=== PATIENT | male | born 1975 | race Caucasian/White ===

== ENCOUNTER 2024-06-02 17:16 | Inpatient (IN) | payer SELFPAY ==
[2024-06-02] VITALS (8 sets, daily range): BP systolic 158–177; BP diastolic 92–119; PULSE 80–186; RESP 16–28; TEMP 36.2–36.6; O2SAT 94–100; BMI 48.4
--- NOTE | 2024-06-02 17:21 | EKG12_ITS ---
Test Reason : Blood Pressure : */* mmHG Vent. Rate : 176 BPM Atrial Rate : * BPM P-R Int : * ms QRS Dur : 110 ms QT Int : 294 ms P-R-T Axes : * -56 117 degrees QTcB Int : 503 ms Critical Test Result: High HR Supraventricular tachycardia Left axis deviation Nonspecific ST elevation, consider early repolarization, pericarditis, or injury Abnormal ECG Confirmed by Alfred Tran ([id number]), script editor GENARO BENSON ([id number]) on 06/03/2024 10:21:56 AM Referred By: Confirmed By: Alfred Tran
[2024-06-02] MEDS: Adenosine 6 MG/2 ML Syringe IV (17:40)
[2024-06-02 17:45] LABS: Absolute Lymphocyte Count 3.18 X10^3/uL (0.83-4.51); Absolute Neutrophil Count 8.1 X10^3/uL (2.0-7.7); Basophil# 0.03 X10^3/uL; Basophil% 0.2 % (0-1); Eosinophil# 0.06 X10^3/uL; Eosinophils% 0.5 % (0-5); Hematocrit 49.2 % (40-54); Hemoglobin 15.8 g/dL (13.0-16.5); Lymphocyte # 3.18 X10^3/ul (0.83-4.51); Lymphocyte % 25.8 % (19-41); Mean Corp Hgb Conc 32.1 g/dL (32-36); Mean Corpuscular Hgb 27.1 pg (27.0-32.0); Mean Corpuscular Volume 84.5 fL (80-94); Mean Platelet Vol. 10.6 fl (6.2-12.0); Monocyte# 0.89 X10^3/uL; Monocyte% 7.2 % (0-10); NRBC Flagged by Analyzer 0 % (0-5); Neutrophil # 8.12 X10^3/uL (2.7-7.7); Neutrophil % 66.1 % (47-70); Platelet Count 320 K/mm3 (150-450); RBC Distribution Width CV 13.7 % (11.6-14.6); RBC Distribution Width SD 41.4 fl (35.1-43.9); Red Blood Count 5.82 M/mm3 (4.6-6.2); White Blood Count 12.3 K/mm3 (4.4-11.0)
--- NOTE | 2024-06-02 17:46 | ED.RN ---
pt. in SVT rate of 180s. 6 of adenosine pushed and pt. converted to a sinus tachycardia rate of 110 with no complications.
[2024-06-02 17:54] LABS: International Normalized Ratio 0.9; Prothrombin Time (Protime)PT. 12.8 SECONDS (11.7-14.9)
[2024-06-02 17:57] LABS: Anion Gap 6 (5-15); BUN 12 mg/dL (7-18); Calcium,Total 9.7 mg/dL (8.5-10.1); Chloride 106 mmol/L (98-107); Creatinine, Serum 1.09 mg/dL (0.70-1.30); EST Glomerular Filtration Rate 77 mL/min (>60); Est Glom Filt Rate - Afr Amer 93 mL/min (>60); Glucose 147 mg/dL (74-106); Potassium 3.6 mmol/L (3.5-5.1); Sodium Level 136 mmol/L (136-145); Troponin-I HS (w/2H Reflex) 27 pg/mL (3.0-78.0)
--- NOTE | 2024-06-02 17:57 | ED.VIS.CHEST ---
HPI History of Present Illness Chief Complaint: Chest Pain Informant: patient Narrative Narrative: Patient is a 48-year-old male with history of tobacco use presenting with palpitations and feeling of his heart racing. Started around 4:30 PM today. He notes that he is been feeling more congestion, losing his voice and a worsening cough over the past week or so. He notes that he has been having a chronic cough for the past year. He does not see a doctor and try to see a doctor but he had to take too much [id number] to make the appointment. She does not look at his legs based had not noticed any leg swelling. Denies any nausea or vomiting. Does not report any changes bowel movements. Denies any chest pain. No other complaints or concerns reported this time. Denies any known cardiac history. States his mom has a history of thyroid problems. PFSH PFSH Home Medications ?Medication ?Instructions ?Recorded ?Last Taken ?Type NK 06/02/24 Unknown History Allergy/AdvReac Type Severity Reaction Status Date / Time No Known Allergies Allergy Verified 06/02/24 17:17 Social History Smoking Status: Current every day smoker tobacco type: cigarettes ROS ROS ED Constitutional Constitutional ED: Denies chills or fever(s) ENT ENT ED: Reports other Details: Nasal congestion Cardiovascular Cardiovascular: Reports palpitations and racing heartbeat; Denies chest pain Respiratory/Chest Respiratory/Chest: Reports cough, dyspnea and sputum Gastrointestinal Gastrointestinal: Denies abdominal pain, diarrhea, nausea or vomiting Musculoskeletal Musculoskeletal: Denies arthralgias or myalgias Integumentary Denies rash Neurologic Neurologic: Denies weakness Hematologic/Lymphatic Hematologic/Lymphatic: Denies easy bleeding or easy bruising EXAM Physical Exam Const Vital Signs: 06/02/24 17:17 06/02/24 17:40 06/02/24 17:45 Temperature 97.2 F L Temperature Source Temporal Pulse Rate 186 H Respiratory Rate 20 H Respiratory Effort Short of Breath Blood Pressure 165/119 H Blood Pressure Mean 134 Pulse Ox 98 Oxygen Delivery Method Room Air Room Air 06/02/24 18:16 06/02/24 19:00 06/02/24 19:49 Temperature Temperature Source Pulse Rate 100 93 94 Respiratory Rate 20 H 22 H 25 H Respiratory Effort Blood Pressure 161/92 H 159/99 H 167/100 H Blood Pressure Mean 115 119 122 Pulse Ox 100 97 Oxygen Delivery Method Room Air Nasal Cannula 06/02/24 20:00 06/02/24 20:00 06/02/24 21:00 Temperature Temperature Source Pulse Rate 94 105 H 85 Respiratory Rate 28 H 19 H 24 H Respiratory Effort Blood Pressure 166/105 H 166/105 H 168/95 H Blood Pressure Mean 125 124 114 Pulse Ox 97 Oxygen Delivery Method Nasal Cannula Positive well nourished, well developed and obese General Appearance ED: well developed and NAD Nutritional Appearance: obese HEENT Reports moist mucous membranes HEENT Narrative: Mild nasal congestion present Neck supple and no JVD Chest Wall inspection of chest normal and palpation of chest normal Resp normal respiratory effort and clear to auscultation bilaterally Auscultation: Negative for rales, rhonchi or wheezes Cardio regular rhythm and no murmurs Rate: tachycardic Peripheral Pulses: pulses 2+ throughout GI normal to inspection, nondistended, normoactive bowel sounds GI Narrative: Protuberant abdomen, nontender. Normal bowel sounds. Extremity normal to inspection General Extremety ED: Negative for edema General Extremity: Negative for edema Neuro oriented x3 Sensorium / Orientation: awake and alert Motor Exam: Negative for general weakness Psych mental status grossly normal Skin no rashes or lesions noted Skin Narrative: Mild striae noted on the abdominal wall Heart Score History: Slightly/Non-Suspicious ECG: Nonspecific Repolarization Age: >45 - <65 years Risk Factors: >/= 3 Risk Factors or History of CAD Troponin: >/=3 x Normal Limit Score: 6 MDM MDM MDM Narrative Medical decision making narrative: Patient evaluated for acute palpitations and chest discomfort. Is found to be in SVT. Modified Valsalva was attempted with no response of his heart rate. He is given 6 mg of IV adenosine with conversion to sinus tachycardia and then to normal sinus rhythm. On repeat evaluation he is feeling better. Patient has reported some ongoing respiratory symptoms and cough and cardiac workup is initiated. Initial high sensitive troponin is 27. On repeat is 133. His CBC shows a mild leukocytosis of 12.3 with no shift. This is nonspecific and suspect reactive. CMP is largely normal. BNP is elevated at 430.3. On his chest x-ray he does not have any acute process but does have cardiomegaly (this is reviewed by myself as well as radiology). TSH is normal. Low suspicion for thyroid storm as a cause of his symptoms. Patient is given aspirin in the ER. Will be admitted for further cardiac evaluation given his bump in his troponin. While could be from the SVT patient does not have any outpatient follow-up and I am concerned he could have some underlying CHF but has not been diagnosed. In addition he is hypertensive I suspect he has undiagnosed hypertension as well. Lab Data Attestation: I reviewed the patient's lab results. Labs: Laboratory Results - last 24 hr 06/02/24 06/02/24 17:32 19:40 WBC 12.3 H RBC 5.82 Hgb 15.8 Hct 49.2 MCV 84.5 MCH 27.1 MCHC 32.1 RDW Std Deviation 41.4 RDW Coeff of Aleksandar 13.7 Plt Count 320 MPV 10.6 Immature Gran % (Auto) 0.200 Neut % (Auto) 66.1 Lymph % (Auto) 25.8 [place] % (Auto) 7.2 Eos % (Auto) 0.5 Baso % (Auto) 0.2 Absolute Neuts (auto) 8.1 H Absolute Lymphs (auto) 3.18 Nucleated RBC % 0 PT 12.8 INR 0.9 Sodium 136 Potassium 3.6 Chloride 106 Carbon Dioxide 24.0 Anion Gap 6 BUN 12 Creatinine 1.09 Est GFR (MDRD) Af Amer 93 Est GFR (MDRD) Non-Af 77 BUN/Creatinine Ratio 11.0 Glucose 147 H Calcium 9.7 Magnesium 2.0 Troponin I High Sens 27 133 H* B-Natriuretic Peptide 430.3 H TSH 2.030 Radiography Diagnostic Testing: Clinical Impression(s) from Imaging Studies Chest X-Ray 06/02/24 18:05 IMPRESSION: No acute radiographic abnormalities. Electronically Signed: Yunier Mckeon MD at 18:49 EST , Rhythm Strip Rhythm Strip: SVT Rate: 176 Ectopy: None EKG Initial EKG: Attestation: I personally reviewed and interpreted this EKG as follows: Interpretation: SVT Comments: Supraventricular tachycardia rate 136 bpm Left axis deviation Minimal voltage criteria for LVH with ST changes likely repolarization abnormalities Prior EKG tracings: not available for review Prior: No Prior Follow-up EKG: Attestation: I personally reviewed and interpreted this EKG as follows: Interpretation: Sinus Rhythm Comments: Normal sinus rhythm at a rate of 98 bpm Minimal voltage criteria for LVH Borderline leftward axis Nonseptic T wave apneas Slightly prolonged QTc of 490 Prior EKG tracings: available for review Prior: Changed (No longer in SVT) Management Discussion w/another healthcare provider: Hospitalist Discharge Plan Dx/Rx/DC Orders Clinical Impression: Elevated troponin, SVT (supraventricular tachycardia) Disposition Disposition: Acute Care Hospital [facility] Discharge Date/Time: 06/02/24 22:33
--- NOTE | 2024-06-02 18:05 | RAD_ITS ---
INDICATION: cough EXAMINATION/TECHNIQUE: X-RAY - XR Chest 2 Views COMPARISON: None. FINDINGS: The lungs are clear. Tortuous and calcified thoracic aorta. The heart is mildly enlarged. No pleural effusion or pneumothorax. No acute osseous abnormalities. RAD/Chest PA and Lateral IMPRESSION: No acute radiographic abnormalities. Electronically Signed: Yunier Mckeon MD at 18:49 EST ,
[2024-06-02 18:40] LABS: BNP,B-Type NATRIURETIC PEPTIDE 430.3 pg/mL (0-100)
[2024-06-02 19:36] LABS: Reflex Troponin-HS? (from REC) Y
[2024-06-02 20:22] LABS: Troponin-I HS 133 pg/mL (3.0-78.0)
[2024-06-02] MEDS: Aspirin 325 MG Tablet PO (20:48)
--- NOTE | 2024-06-02 21:33 | PCM.HP.STD ---
HPI - General General Date of Admission: 06/02/24 Date of Service: 06/02/24 Chief Complaint: Palpitations and persistent cough HPI Narrative SYDNEY SOLIZ, is a 48 M who presented to [facility] ED on 06/02/2024 with palpitations and persistent cough. Patient notes the palpitations started around 4:30 PM today. He reports a persistent nonproductive cough over the last year or so. Notes he is felt more congested within the last week and has been losing his voice as well. He has not seen a doctor in many years due to cost. He does report some chest pain/discomfort since the palpitations started. On arrival to the ED patient's heart rate was in the 180s and he appeared to be in SVT. Valsalva maneuver was attempted with no improvement. He was then given a dose of 6 mg of IV adenosine with conversion to sinus tachycardia. On repeat evaluation by ED staff he was feeling much improved. After conversion he remained hypertensive to the 150s to 160s systolic. Chest x-ray showed cardiomegaly but no volume overload. CBC and BMP were unremarkable. BNP was 430. Troponin trend 27 > 133 > 335 > 347. EKG showed LV hypertrophy but no ST changes. TSH normal. Given his uptrending troponins with elevated blood pressure and concern for possible heart failure, hospitalist contacted for admission. I saw the patient at bedside in the ED. Patient was sitting up comfortably in bed, breathing comfortably on room air and in no acute distress. He denies any chest pain or shortness of breath at this point. States he has noticed some swelling in his legs over the past few months. Also notes that he has gained 50 to 60 pounds in the last several months. Reports good appetite over that timeframe but does state that this amount of weight gain has been surprising to him. Denies any fevers or chills. No other acute concerns this time. [facility] Home Medications ?Medication ?Instructions ?Recorded ?Last Taken ?Type NK 06/02/24 Unknown History Allergy/AdvReac Type Severity Reaction Status Date / Time No Known Allergies Allergy Verified 06/02/24 17:17 Social History Smoking Status: Current every day smoker tobacco type: cigarettes ROS Constitutional Constitutional: Denies chills, fatigue, fever(s) or weakness Eyes Eyes: Denies change in vision Cardiovascular Cardiovascular: Reports dyspnea on exertion, edema, palpitations and rapid heart rate; Denies chest pain or lightheadedness Respiratory/Chest Respiratory/Chest: Reports cough and shortness of breath with exertion; Denies productive cough, shortness of breath at rest or wheezing Gastrointestinal Gastrointestinal: Denies abdominal pain, constipation, diarrhea, nausea or vomiting Musculoskeletal Musculoskeletal: Denies arthralgias or myalgias Neurologic Neurologic: Denies dizziness, focal weakness or headache(s) Vital Signs Vital Signs Vital Signs: 06/02/24 17:17 06/02/24 17:40 06/02/24 17:45 Temperature 97.2 F L Temperature Source Temporal Pulse Rate 186 H Respiratory Rate 20 H Respiratory Effort Short of Breath Blood Pressure 165/119 H Blood Pressure Mean 134 Pulse Ox 98 Oxygen Delivery Method Room Air Room Air 06/02/24 18:16 06/02/24 19:00 06/02/24 19:49 Temperature Temperature Source Pulse Rate 100 93 94 Respiratory Rate 20 H 22 H 25 H Respiratory Effort Blood Pressure 161/92 H 159/99 H 167/100 H Blood Pressure Mean 115 119 122 Pulse Ox 100 97 Oxygen Delivery Method Room Air Nasal Cannula 06/02/24 20:00 06/02/24 20:00 06/02/24 21:00 Temperature Temperature Source Pulse Rate 94 105 H 85 Respiratory Rate 28 H 19 H 24 H Respiratory Effort Blood Pressure 166/105 H 166/105 H 168/95 H Blood Pressure Mean 125 124 114 Pulse Ox 97 Oxygen Delivery Method Nasal Cannula Physical Exam Const alert, oriented x3 and no apparent distress Constitutional Narrative: Middle-age male, class III obesity, sitting up comfortably in bed, conversing normally, in no acute distress. General Appearance: cooperative and comfortable HEENT normocephalic, head/scalp atraumatic, hearing grossly normal bilaterally, nasal mucous membranes and turbinates normal and moist oral mucous membranes Eyes PERRL, EOMs intact bilaterally and conjunctivae normal Neck full ROM Chest inspection of chest normal Resp normal respiratory effort and no use of accessory muscles Resp Narrative: Breathing comfortably on room air at rest. Mildly decreased breath sounds in bilateral lung bases, otherwise good air movement throughout. No wheezing or crackles noted. Cardio regular rate, regular rhythm, no murmurs and peripheral pulses 2+ throughout GI normal to inspection, nondistended, normoactive bowel sounds, soft to palpation, non-tender and non-distended Back/Spine normal ROM Extremity full ROM Extremity Narrative: +1-2 nonpitting lower extremity edema. Skin no rashes or lesions noted Psych mental status grossly normal Results Lab / Micro Data 06/03/24 03:07 06/03/24 03:07 Labs: Laboratory Results - last 24 hr 06/02/24 17:32: WBC 12.3 H, RBC 5.82, Hgb 15.8, Hct 49.2, MCV 84.5, MCH 27.1, MCHC 32.1, RDW Std Deviation 41.4, RDW Coeff of Aleksandar 13.7, Plt Count 320, MPV 10.6, Immature Gran % (Auto) 0.200, Neut % (Auto) 66.1, Lymph % (Auto) 25.8, [place] % (Auto) 7.2, Eos % (Auto) 0.5, Baso % (Auto) 0.2, Absolute Neuts (auto) 8.1 H, Absolute Lymphs (auto) 3.18, Nucleated RBC % 0, PT 12.8, INR 0.9, Sodium 136, Potassium 3.6, Chloride 106, Carbon Dioxide 24.0, Anion Gap 6, BUN 12, Creatinine 1.09, Est GFR (MDRD) Af Amer 93, Est GFR (MDRD) Non-Af 77, BUN/Creatinine Ratio 11.0, Glucose 147 H, Calcium 9.7, Magnesium 2.0, Troponin I High Sens 27, B-Natriuretic Peptide 430.3 H, TSH 2.030 06/02/24 19:40: Troponin I High Sens 133 H* Micro: Microbiology 06/02/24 18:07 Mucosa - Nose SARS-CoV-2, Influenza & RSV (PCR) - Final Imaging Radiology Impression Chest X-Ray 06/02/24 18:05 IMPRESSION: No acute radiographic abnormalities. Electronically Signed: Yunier Mckeon MD at 18:49 EST , Assessment & Plan Assessment/Plan (1) SVT (supraventricular tachycardia): (2) Elevated troponin: PLAN: Plan Patient is a 48-year-old male who presented [facility] ED on 06/02/2024 with palpitations and persistent cough. 1. Episode of SVT with uptrending troponins and concern for heart failure ? Admit under inpatient status to PCU. Highest concern is for diastolic heart failure secondary to untreated hypertension given cardiomegaly on chest x-ray and LV hypertrophy on EKG. However cannot rule out underlying coronary disease. Nuclear stress test ordered. Echo ordered. Continue cardiac monitoring. Will hold on starting any blood pressure medications until cardiac testing has resulted. 2. Elevated blood pressure readings ? Blood pressure consistently in the 150s to 160s in the ED. Suspect patient has underlying essential hypertension. Has never been on medication for this. Further management as above. 3. Class III obesity ? BMI 48 on admit. Encouraged lifestyle modifications. Complicates hospital course, care and prognosis. 4. Tobacco use disorder ? Smokes 0.5 to 1 packs of cigarettes per day. Discussed cessation. Denies need for nicotine replacement therapy while inpatient. DVT prophylaxis: Lovenox CODE STATUS: Full code, verified Expected disposition: Home, 2 to 3 days Total clinical time spent by myself addressing the patient's medical issues, reviewing all the data, and collaborating with patient's care team: 55 minutes. Charges/Coding Visit Charges Inpatient E&M: 07681 Init Hosp L2
[2024-06-02] MEDS: Furosemide 20 MG/2 ML VIAL IV (22:11)
--- NOTE | 2024-06-02 22:53 | ECHOCS_ITS ---
Reason For Study: CHEST PAIN Procedure This was a 2D Doppler, Color Flow transthoracic echocardiogram. The study was technically difficult. Contrast injection was performed. Exam performed in department. Left Ventricle Normal LV size. The estimated ejection fraction is 45 %. There is evidence of diastolic dysfunction. There is mild to moderate global hypokinesis of the left ventricle. Right Ventricle Normal RV size. Normal systolic function. Atria The left and right atria are normal. No doppler evidence for ASD. Mitral Valve There is no mitral valve stenosis. No mitral valve insufficiency. Tricuspid Valve There is no tricuspid stenosis. Unable to estimate RV systolic pressure due to inadequate jet, pulmonary artery pressure probably normal. Aortic Valve Trisinus/trileaflet aortic valve. Aortic sclerosis, no stenosis. There is no aortic stenosis. Mild (1+) aortic valve insufficiency. Pulmonic Valve There is no pulmonic valvular stenosis. No pulmonic valve insufficiency. Great Vessels Normal aortic root. Pericardium/Pleural No pericardial effusion. Medication Diluted definity 3ml given slow IV push to enhance endocardial definition. MMode/2D Measurements & Calculations LVIDd: 6.1 cm IVSd: 1.7 cm LAV(MOD-bp): 55.6 ml LVIDs: 5.2 cm LVPWd: 1.6 cm FS: 15.4 % LAV(MOD-bp) Indexed: 22.3 ml/m2 LAV(MOD-sp2): 50.2 ml LAV(MOD-sp4): 64.1 ml LA dimension(2D): 4.4 cm LA A4 area: 20.5 cm2 RA A4 area: 16.9 cm2 Time Measurements MV dec time: 0.09 sec Doppler Measurements & Calculations MV E max david: 98.7 cm/sec Lat Peak E' David: 4.7 cm/sec Med Peak E' David: 5.7 cm/sec MV A max david: 94.9 cm/sec E/E' lat: 20.8 E/E' med: 17.2 MV E/A: 1.0 Ao V2 max: 173.1 cm/sec AI max david: 496.4 cm/sec MV dec slope: 1106 cm/sec2 Ao max P.0 mmHg AI max P.6 mmHg Ao V2 mean: 127.2 cm/sec Ao mean P.2 mmHg AI dec slope: 445.5 cm/sec2 Ao V2 VTI: 37.9 cm AI P1/2t: 326.4 msec AV (velocity ratio): 0.81 LV V1 max: 124.6 cm/sec PA V2 max: 87.7 cm/sec LV V1 max P.2 mmHg PA V2 mean: 56.9 cm/sec LV V1 mean P.4 mmHg LV V1 mean: 82.9 cm/sec LV V1 VTI: 30.6 cm ECHO/Echo Complete W/ Contrast Interpretation Summary The estimated ejection fraction is 45 %. There is mild to moderate global hypokinesis of the left ventricle. Mild (1+) aortic valve insufficiency. Ordering Physician: Waqas Ott Referring Physician: RONNIE PCP Performed By: Laura Gibbs RCS
--- NOTE | 2024-06-02 23:10 | EKG12_ITS ---
Test Reason : Blood Pressure : */* mmHG Vent. Rate : 98 BPM Atrial Rate : 98 BPM P-R Int : 146 ms QRS Dur : 106 ms QT Int : 384 ms P-R-T Axes : 45 -22 97 degrees QTcB Int : 490 ms Normal sinus rhythm Minimal voltage criteria for LVH, may be normal variant ( Ashok product ) Nonspecific T wave abnormality Prolonged QT Abnormal ECG Confirmed by Alfred Tran ([id number]), staff editor GENARO BENSON ([id number]) on 06/03/2024 10:22:08 AM Referred By: AMELIA Confirmed By: Alfred Tran
--- NOTE | 2024-06-02 23:15 | EKG12_ITS ---
Test Reason : CP ADMIT Blood Pressure : */* mmHG Vent. Rate : 78 BPM Atrial Rate : 78 BPM P-R Int : 170 ms QRS Dur : 106 ms QT Int : 408 ms P-R-T Axes : 37 -15 246 degrees QTcB Int : 465 ms Normal sinus rhythm Voltage criteria for left ventricular hypertrophy ( R in aVL , Sokolow-Nuno , Ashok product ) T wave abnormality, consider lateral ischemia Prolonged QT Abnormal ECG When compared with ECG of 02-Jun-2024 17:51, MANUAL COMPARISON REQUIRED DATA IS UNCONFIRMED Confirmed by Alfred Tran ([id number]), editor city GENARO BENSON ([id number]) on 06/03/2024 1:18:33 PM Referred By: DR LARIOS Confirmed By: Alfred Tran
[2024-06-03 00:05] LABS: Troponin-I HS 335 pg/mL (3.0-78.0)
[2024-06-03 03:33] LABS: Hematocrit 44.5 % (40-54); Hemoglobin 14.4 g/dL (13.0-16.5); Mean Corp Hgb Conc 32.4 g/dL (32-36); Mean Corpuscular Hgb 27.6 pg (27.0-32.0); Mean Corpuscular Volume 85.2 fL (80-94); Mean Platelet Vol. 10.4 fl (6.2-12.0); Platelet Count 277 K/mm3 (150-450); RBC Distribution Width CV 13.7 % (11.6-14.6); RBC Distribution Width SD 42.2 fl (35.1-43.9); Red Blood Count 5.22 M/mm3 (4.6-6.2)
[2024-06-03 03:57] LABS: Troponin-I HS 347 pg/mL (3.0-78.0)
[2024-06-03 04:01] LABS: Anion Gap 3 (5-15); BUN 12 mg/dL (7-18); BUN/Creat Ratio 12.6 RATIO (10-20); Calcium,Total 9.1 mg/dL (8.5-10.1); Chloride 107 mmol/L (98-107); Cholesterol 193 mg/dL (200); Creatinine, Serum 0.95 mg/dL (0.70-1.30); EST Glomerular Filtration Rate 90 mL/min (>60); Est Glom Filt Rate - Afr Amer 108 mL/min (>60); Estimated Creatinine Clearance 133.05 ml/min; Glucose 137 mg/dL (74-106); High Density Lipoprotein 30 mg/dL; Potassium 3.4 mmol/L (3.5-5.1); Sodium Level 139 mmol/L (136-145); Triglycerides 316 mg/dL; Very Low Density Lipoprotein 63 mg/dL (5-40)
[2024-06-03] MEDS: Potassium Chloride Oral Tablet 20 MEQ 40 MEQ PO (05:14)
[2024-06-03 05:15] VITALS: BP 150/80; PULSE 73; RESP 18; TEMP 36.6; O2SAT 95
--- NOTE | 2024-06-03 05:55 | EKG12_ITS ---
Test Reason : AM EKG Blood Pressure : */* mmHG Vent. Rate : 74 BPM Atrial Rate : 74 BPM P-R Int : 164 ms QRS Dur : 112 ms QT Int : 430 ms P-R-T Axes : 41 -12 238 degrees QTcB Int : 477 ms Normal sinus rhythm Voltage criteria for left ventricular hypertrophy ( R in aVL , Sokolow-Nuno , [place] product ) T wave abnormality, consider inferolateral ischemia Prolonged QT Abnormal ECG When compared with ECG of 02-Jun-2024 23:15, MANUAL COMPARISON REQUIRED DATA IS UNCONFIRMED Confirmed by Alfred Tran ([id number]), slot editor GENARO BENSON ([id number]) on 06/03/2024 1:14:01 PM Referred By: Confirmed By: Alfred Tran
[2024-06-03 10:15] VITALS: BP 165/92; PULSE 75; RESP 18; TEMP 36.3; O2SAT 95
--- NOTE | 2024-06-03 10:55 | CASEMGMT ---
RN FAIZA Face to Face with patient for initial transition planning/care coordination assessment. RN CM introduced self and role at [facility]. Patient lying in bed, alert and oriented. Patient willing to participate in assessment and is able to answer all questions appropriately. Care providers, pharmacy, and demographics verified. Strata: 1 PCP: None, CM to provide PCP list Specialists: none Preferred Pharmacy: [facility] Insurance: none Prescription Benefit: none Living Will/HPOA: none LNOK: significant other Living Arrangements: Patient lives with significant other in a first floor apartment with 2 steps to enter. Patient states he is independent at home. Transportation: self, significant other DME/HHC: Denies DME in the home. No previous HHC or SNF Patient wishes to discharge home, denies need for home health at this time. Patient states he has no further needs or concerns at this time. CM to follow for discharge planning needs that may arise. Disposition Plan: Patient to discharge home with family support and follow-up plans in place. Elida TORREZ, RN, CM
--- NOTE | 2024-06-03 11:52 | CASEMGMT ---
Social Work SW met with pt and introduced self and role of SW. Pt presenting with no health insurance. Written information provided to pt on Prescription Assistance programs, [facility] and [facility]. Pt will be seen by Marta and assessed for Medicaid eligibility. HARRY Pascal
--- NOTE | 2024-06-03 12:18 | STRESSREP ---
Stress Test Report Date: 06/03/2024 Procedure: Pharmacologic stress nuclear imaging study Indications: Chest pain Consent: Per the patient Procedure: The patient underwent pharmacologic (Regadenoson) evaluation with a peak heart rate of 100 beats per minute (58%predicted maximal heart rate) and a peak blood pressure of 152/92 mmHg. The baseline ECG demonstrated normal sinus rhythm, poor R wave progression in the anterior leads. EKG during lexiscan infusion revealed no significant ischemic changes. EKG post infusion revealed no significant ischemic changes [There were no cardiac dysrhythmias pretest, during pharmacologic infusion, or recovery]. [There was no complaint of chest discomfort during pharmacologic infusion or recovery]. The examination was discontinued secondary to completion of protocol. Impression: 1. Lexiscan stress test test is negative for Lexiscan infusion induced EKG changes of ischemia. 2. Lexiscan stress test test is negative for Lexiscan infusion induced chest pain. 3. Results of the nuclear portion of the test is as below Myocardial perfusion imaging study: Technique: The patient was injected with 15 millicuries of technetium 99m Cardiolite and subsequently rest SPECT Cardiolite nuclear imaging was obtained in the horizontal long, vertical long, and short axis views. The patient underwent pharmacologic [Regadenoson 0.4mg] evaluation. Please see above for details. The patient was injected with 45.6 millicuries of technetium 99m Cardiolite and subsequently stress SPECT Cardiolite nuclear imaging was obtained in the horizontal long, vertical long, and short axis views. A gated Cardiolite study at peak stress was obtained. Interpretation: Rest and stress SPECT Cardiolite nuclear imaging status post realignment, normalization, and attenuation correction demonstrate mild decrease in the radioisotope uptake in the inferior wall on the rest images that is minimally worse on the stress images suggestive of mild inferior ischemia. Gated images reveal global hypokinesis. The reported LVEF is 37%. Impression: 1. There is evidence of mild inferior ischemia. 2. Estimated ejection fraction is 37%. This note was generated with [employer] software. It may contain incorrect words, spelling, and punctuation that were not noted in checking the note before signing.
--- NOTE | 2024-06-03 14:50 | CHAPLAIN ---
Type of Pastoral Visit _x__ Initial Visit ___ Follow-up Visit ___ On-call Visit ___ General Patient Visit ___ Spiritual Assessment ___ Family Conference ___ Bereavement ___ Rapid Response ___ Code Blue ___ Other (describe below) Pastoral Care Referral From _x__ Patient ___ Family ___ Nurse ___ Physician ___ Manufacturing Specialist ___ Abattoir Manager ___ Other (describe below) Sacrament/Intervention _x__ Active listening ___ Anointing ___ Restoration ___ Bereavement ___ Communion ___ Yaneth exploration ___ ___ Life review ___ Prayer ___ Reconciliation ___ Sacrament of Sick _x__ Supportive presence ___ Wedding ___ Other (describe below) Pastoral Comments patient is waiting on test results and is resting in bed; pt and spouse are in the room; pt describes what happened yesterday that brought him to the hospital, that he is feeling much better now, and has hopes that he will be able to go home yet today; pt states that he has no other needs
[2024-06-03 15:29] VITALS: BP 171/84; PULSE 78; RESP 18; TEMP 36.6; O2SAT 95
[2024-06-03] MEDS: Enoxaparin 40 MG/0.4 ML Syringe SC ×2 (15:32→22:56)
[2024-06-03] MEDS: Aspirin E.C. 81 MG Tablet PO (15:36)
--- NOTE | 2024-06-03 16:15 | PCM.PN.HOSP ---
Reason for Visit Reason for Visit: Diagnoses Supraventricular tachycardia, unspecified (06/02/24) Other specified abnormal findings of blood chemistry (06/02/24) Subjective Subjective Patient did have a little bit of chest pain during his stress test but not presently having any, mostly just feeling tired Objective Data Objective Data Vital Signs: Vital Signs Temp Pulse Resp BP Pulse Ox O2 Del Method 97.8 F 78 18 171/84 H 95 Room Air 06/03/24 15:29 06/03/24 15:29 06/03/24 15:29 06/03/24 15:29 06/03/24 15:29 06/03/24 15:29 Oxygen Delivery Method Room Air Weight: 144.7 kg Body Mass Index (BMI) 48.4 Lab / Micro Data 06/03/24 03:07 06/03/24 03:07 Labs: Laboratory Results - last 24 hr 06/02/24 17:32: WBC 12.3 H, RBC 5.82, Hgb 15.8, Hct 49.2, MCV 84.5, MCH 27.1, MCHC 32.1, RDW Std Deviation 41.4, RDW Coeff of Aleksandar 13.7, Plt Count 320, MPV 10.6, Immature Gran % (Auto) 0.200, Neut % (Auto) 66.1, Lymph % (Auto) 25.8, [place] % (Auto) 7.2, Eos % (Auto) 0.5, Baso % (Auto) 0.2, Absolute Neuts (auto) 8.1 H, Absolute Lymphs (auto) 3.18, Nucleated RBC % 0, PT 12.8, INR 0.9, Sodium 136, Potassium 3.6, Chloride 106, Carbon Dioxide 24.0, Anion Gap 6, BUN 12, Creatinine 1.09, Est GFR (MDRD) Af Amer 93, Est GFR (MDRD) Non-Af 77, BUN/Creatinine Ratio 11.0, Glucose 147 H, Calcium 9.7, Magnesium 2.0, Troponin I High Sens 27, B-Natriuretic Peptide 430.3 H, TSH 2.030 06/02/24 19:40: Troponin I High Sens 133 H* 06/02/24 23:32: Troponin I High Sens 335 H* 06/03/24 03:07: WBC 10.0, RBC 5.22, Hgb 14.4, Hct 44.5, MCV 85.2, MCH 27.6, MCHC 32.4, RDW Std Deviation 42.2, RDW Coeff of Aleksandar 13.7, Plt Count 277, MPV 10.4, Sodium 139, Potassium 3.4 L, Chloride 107, Carbon Dioxide 29.0, Anion Gap 3 L, BUN 12, Creatinine 0.95, Estim Creat Clear Calc 133.05, Est GFR (MDRD) Af Amer 108, Est GFR (MDRD) Non-Af 90, BUN/Creatinine Ratio 12.6, Glucose 137 H, Calcium 9.1, Troponin I High Sens 347 H*, Triglycerides 316 H, Cholesterol 193, LDL Cholesterol 100, VLDL Cholesterol 63 H, HDL Cholesterol 30 L Micro: Microbiology 06/02/24 18:07 Mucosa - Nose SARS-CoV-2, Influenza & RSV (PCR) - Final Radiography Diagnostic Testing: Radiology Impression Chest X-Ray 06/02/24 18:05 IMPRESSION: No acute radiographic abnormalities. Electronically Signed: Yunier Mckeon MD at 18:49 EST , Echocardiogram 06/02/24 22:53 Interpretation Summary The estimated ejection fraction is 45 %. There is mild to moderate global hypokinesis of the left ventricle. Mild (1+) aortic valve insufficiency. Ordering Physician: Waqas Ott Referring Physician: NO PCP Performed By: Laura Gibbs RCS Rhythm Strip Rhythm Strip: SVT Rate: 176 Ectopy: None Physical Exam Narrative General: Tired but wakes up and answers questions appropriately HEENT: Atraumatic, normocephalic Eyes: Anicteric, normal conjunctiva, extraocular movements grossly intact Neck: Supple Respiratory: Somewhat diminished bilaterally possibly secondary to body habitus, normal respiratory effort Cardiovascular: Regular rate and rhythm GI: Abdomen protuberant Extremities: No edema Musculoskeletal: Moving all extremities Neuro: No overt focal neurological deficits Skin: No rashes appreciated Psych: Cooperative Assessment & Plan Assessment/Plan (1) Elevated troponin: PLAN: Plan #Elevated troponin and abnormal stress test -Troponins up trended to 347 and stress test with evidence of mild inferior ischemia -Patient started on aspirin, statin, beta-renny -Not presently having chest pain so heparin drip not started the cardiology consulted and the patient may need cardiac cath -Cardiac diet, n.p.o. at midnight in the event he needs intervention # New onset heart failure with preserved ejection fraction -Patient with EF 45% with mild to moderate global hypokinesis of left ventricle and echocardiogram reported evidence of diastolic dysfunction -BNP 430 on presentation -Cardiac diet -At this time does not appear to be significantly fluid overloaded, did get a dose of Lasix overnight, will monitor volume status. May ultimately need further Lasix -Daily weights, I's and O's # Hypertension -Metoprolol started, will likely also need MARY ELLEN inhibitor # SVT-resolved -Noted in the ED and patient was given adenosine with resolution -Admitted on telemetry -Continue to monitor -TSH within normal limits #Hypokalemia -Replace -Repeat in the AM #Morbid obesity -BMI documented as 48.5 kg/m? at time of admission -Complicates treatment, prognosis, outcomes -Recommend weight loss and lifestyle changes #Tobacco use -Advise cessation -Nicotine replacement available if desired #DVT ppx: Lovenox subcu Lupe Menendez MD Charges/Coding Visit Charges Inpatient E&M: 31151 Subs Hosp L2
--- NOTE | 2024-06-03 16:48 | PCM.CONS.C ---
Assessment & Plan Assessment/Plan (1) Abnormal stress test: PLAN: Patient's symptoms were consistent with an anginal equivalent. His troponin was 347. Stress test suggested inferior ischemia. The echocardiogram suggested global LV dysfunction EF of 45% consistent with possible hypertensive heart disease. Given the patient's presentation and the subtle T wave changes on his EKG with the positive enzymes and abnormal stress test I would recommend the patient undergo a left heart catheterization. The procedure risk/benefit and alternatives were explained to the patient in detail he voiced understanding and agrees to proceed. (2) SVT (supraventricular tachycardia): PLAN: Patient has not had a recurrence of his SVT which was converted with Identicard in the emergency department. (3) Hypertension: QUALIFIERS: Hypertension type: primary hypertension Qualified Code(s): I10 - Essential (primary) hypertension PLAN: Patient's blood pressure remains elevated on metoprolol 25 mg twice daily. I would recommend that we continue the metoprolol and add losartan 50 mg every afternoon to his medical regiment. PLAN: Plan 1. Will plan left heart catheterization tomorrow morning. 2. Add losartan to his medical regimen. 3. Further recommendations pending the outcome of the catheterization. HPI Consult Data Date of Consult: 06/03/24 HPI Narrative HPI Narrative: SYDNEY SOLIZ, is a 48 M who presents with chest pain and an abnormal stress test was done today in the hospital. Patient presented June 02, 2024 after he developed chest discomfort palpitations diffuse sweating and left arm discomfort while working at [employer]. 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 The patient came to the emergency room room he was in supraventricular tachycardia at around 180 bpm and this was treated with adenosine with conversion to sinus tach. The patient was hospitalized due to troponin elevation of 300. He has had no recurrence of his SVT or his chest symptoms. His EKG initially showed LVH and sinus rhythm. Subsequent EKG 24 hours later showed the same LVH but more prominent T wave inversions in the limb leads as well as V3 4 through V6. The patient underwent pharmacologic stress testing today which showed inferior ischemia. The patient is echocardiogram done today showed an global LV dysfunction EF of 45%. The patient apparently has untreated hypertension he has not been to the doctor in several years due to financial constraints. He continues to smoke he does have a 5-year-old daughter that I discussed with him the importance of him stopping smoking. The patient is not allergic to contrast to his knowledge. [facility] Home Medications ?Medication ?Instructions ?Recorded ?Last Taken ?Type NK 06/02/24 Unknown History Allergy/AdvReac Type Severity Reaction Status Date / Time No Known Allergies Allergy Verified 06/02/24 17:17 Social History Smoking Status: Current every day smoker tobacco type: cigarettes ROS Constitutional Constitutional: Reports as per HPI Eyes Eyes: Reports systems reviewed and no addt'l complaints, except as documented ENT HEENT: Reports systems reviewed and no addt'l complaints, except as documented Cardiovascular Cardiovascular: Reports as per HPI Respiratory/Chest Respiratory/Chest: Reports as per HPI Gastrointestinal Gastrointestinal: Reports systems reviewed and no addt'l complaints, except as documented Genitourinary Genitourinary: Reports systems reviewed and no addt'l complaints, except as documented Musculoskeletal Musculoskeletal: Reports systems reviewed and no addt'l complaints, except as documented Integumentary Integumentary: Reports systems reviewed and no addt'l complaints, except as documented Neurologic Neurologic: Reports systems reviewed and no addt'l complaints, except as documented Psychiatric Psychiatric: Reports systems reviewed and no addt'l complaints, except as documented Endocrine Endocrinology: Reports systems reviewed and no addt'l complaints, except as documented Hematologic/Lymphatic Hematologic/Lymphatic: Reports systems reviewed and no addt'l complaints, except as documented Allergic/Immunologic Allergic/Immunologic: Reports systems reviewed and no addt'l complaints, except as documented Physical Exam Const alert and oriented x3 HEENT normocephalic Eyes EOMs intact bilaterally Neck no JVD Carotids: Negative for bruit Chest inspection of chest normal Resp normal respiratory effort and clear to auscultation bilaterally Cardio regular rate, regular rhythm, S1 normal heart sound, S2 normal heart sound, no murmurs, no rub and no gallops Peripheral Pulses: radial pulses present bilateral 2+ GI normal to inspection, nondistended, normoactive bowel sounds, soft to palpation and no bruits Extremity no pedal edema Skin no rashes or lesions noted Neuro Neuro Narrative: Alert and oriented x 3 Psych mental status grossly normal Risk Stratification Risk Stratification Applicable: Yes Age >/= 65: No >/= 3 CAD Risk Factors (HTN, HLD, DM, family hx of CAD, or current smoker): No Aspirin Use in the Past 7 Days: No Severe Angina (>/= episodes in 24 hours): Yes EKG ST Changes >/= 0.5mm: No Positive Cardiac Marker: Yes FANNY Risk Stratification Score: 2 FANNY % Risk: 8% Risk Charges/Coding Visit Charges Inpatient E&M: 76967 Init Hosp L3 Objective Data Vital Signs: Vital Signs Temp Pulse Resp BP Pulse Ox O2 Del Method 97.8 F 78 18 171/84 H 95 Room Air 06/03/24 15:29 06/03/24 15:29 06/03/24 15:29 06/03/24 15:29 06/03/24 15:29 06/03/24 15:29 Oxygen Delivery Method Room Air Weight: 319 lb 0.142 oz Body Mass Index (BMI) 48.4 Lab / Micro Data Attestation: I reviewed the patient's lab results. 06/03/24 03:07 06/03/24 03:07 Labs: Laboratory Results - last 24 hr 06/02/24 17:32: WBC 12.3 H, RBC 5.82, Hgb 15.8, Hct 49.2, MCV 84.5, MCH 27.1, MCHC 32.1, RDW Std Deviation 41.4, RDW Coeff of Aleksandar 13.7, Plt Count 320, MPV 10.6, Immature Gran % (Auto) 0.200, Neut % (Auto) 66.1, Lymph % (Auto) 25.8, [place] % (Auto) 7.2, Eos % (Auto) 0.5, Baso % (Auto) 0.2, Absolute Neuts (auto) 8.1 H, Absolute Lymphs (auto) 3.18, Nucleated RBC % 0, PT 12.8, INR 0.9, Sodium 136, Potassium 3.6, Chloride 106, Carbon Dioxide 24.0, Anion Gap 6, BUN 12, Creatinine 1.09, Est GFR (MDRD) Af Amer 93, Est GFR (MDRD) Non-Af 77, BUN/Creatinine Ratio 11.0, Glucose 147 H, Calcium 9.7, Magnesium 2.0, Troponin I High Sens 27, B-Natriuretic Peptide 430.3 H, TSH 2.030 06/02/24 19:40: Troponin I High Sens 133 H* 06/02/24 23:32: Troponin I High Sens 335 H* 06/03/24 03:07: WBC 10.0, RBC 5.22, Hgb 14.4, Hct 44.5, MCV 85.2, MCH 27.6, MCHC 32.4, RDW Std Deviation 42.2, RDW Coeff of Aleksandar 13.7, Plt Count 277, MPV 10.4, Sodium 139, Potassium 3.4 L, Chloride 107, Carbon Dioxide 29.0, Anion Gap 3 L, BUN 12, Creatinine 0.95, Estim Creat Clear Calc 133.05, Est GFR (MDRD) Af Amer 108, Est GFR (MDRD) Non-Af 90, BUN/Creatinine Ratio 12.6, Glucose 137 H, Calcium 9.1, Troponin I High Sens 347 H*, Triglycerides 316 H, Cholesterol 193, LDL Cholesterol 100, VLDL Cholesterol 63 H, HDL Cholesterol 30 L Micro: Microbiology 06/02/24 18:07 Mucosa - Nose SARS-CoV-2, Influenza & RSV (PCR) - Final Rhythm Strip Rhythm Strip: Sinus Rhythm Rate: 75 Ectopy: None Cardiology Labs/Tests 06/02/24 17:32: WBC 12.3 H, RBC 5.82, Hgb 15.8, Hct 49.2, MCV 84.5, MCH 27.1, MCHC 32.1, Plt Count 320, MPV 10.6, Immature Gran % (Auto) 0.200, Neut % (Auto) 66.1, Lymph % (Auto) 25.8, [place] % (Auto) 7.2, Eos % (Auto) 0.5, Baso % (Auto) 0.2, Absolute Neuts (auto) 8.1 H, Nucleated RBC % 0, PT 12.8, INR 0.9, Sodium 136, Potassium 3.6, Chloride 106, Carbon Dioxide 24.0, Anion Gap 6, BUN 12, Creatinine 1.09, Est GFR (MDRD) Af Amer 93, Est GFR (MDRD) Non-Af 77, BUN/Creatinine Ratio 11.0, Glucose 147 H, Calcium 9.7, Magnesium 2.0, B-Natriuretic Peptide 430.3 H 06/03/24 03:07: WBC 10.0, RBC 5.22, Hgb 14.4, Hct 44.5, MCV 85.2, MCH 27.6, MCHC 32.4, Plt Count 277, MPV 10.4, Sodium 139, Potassium 3.4 L, Chloride 107, Carbon Dioxide 29.0, Anion Gap 3 L, BUN 12, Creatinine 0.95, Est GFR (MDRD) Af Amer 108, Est GFR (MDRD) Non-Af 90, BUN/Creatinine Ratio 12.6, Glucose 137 H, Calcium 9.1, Triglycerides 316 H, Cholesterol 193, LDL Cholesterol 100, VLDL Cholesterol 63 H, HDL Cholesterol 30 L Rhythm: EKG: ECHO: Stress Test: Cardiac Cath: PCI: CT Surgery: Holter monitor: EPS: PPM: CXR: Chest CT Scan: Radiography Diagnostic Testing: Radiology Impression Chest X-Ray 06/02/24 18:05 IMPRESSION: No acute radiographic abnormalities. Electronically Signed: Yunier Mckeon MD at 18:49 EST , Echocardiogram 06/02/24 22:53 Interpretation Summary The estimated ejection fraction is 45 %. There is mild to moderate global hypokinesis of the left ventricle. Mild (1+) aortic valve insufficiency. Ordering Physician: Waqas Ott Referring Physician: NO PCP Performed By: Laura Gibbs RCS
[2024-06-03 17:25] LABS: Hemoglobin A1c 6.1 % (3.8-5.6)
[2024-06-03 17:34] VITALS: PULSE 78
[2024-06-03] MEDS: Metoprolol Tartrate 25 MG Tablet PO (17:34)
[2024-06-03 18:21] VITALS: BP 171/92
[2024-06-03 21:30] VITALS: BP 169/86; PULSE 76; RESP 18; TEMP 36.4; O2SAT 97
[2024-06-03] MEDS: 0.9% Saline Lock 10 ML Syringe IV (22:55)
[2024-06-03] MEDS: Atorvastatin Calcium 80 MG Tablet PO (22:56)
[2024-06-04] VITALS (9 sets, daily range): BP systolic 153–173; BP diastolic 88–95; PULSE 70–93; RESP 17–18; TEMP 36.5–37; O2SAT 94–98; BMI 48.7
--- NOTE | 2024-06-04 05:55 | EKG12_ITS ---
Test Reason : AM EKG Blood Pressure : */* mmHG Vent. Rate : 77 BPM Atrial Rate : 77 BPM P-R Int : 160 ms QRS Dur : 94 ms QT Int : 410 ms P-R-T Axes : 48 -14 12 degrees QTcB Int : 463 ms Normal sinus rhythm Moderate voltage criteria for LVH, may be normal variant ( R in aVL , [place] product ) Cannot rule out Anterior infarct , age undetermined T wave abnormality, consider lateral ischemia Abnormal ECG Confirmed by Alfred Tran ([id number]), associate editor GENARO BENSON ([id number]) on 06/04/2024 9:39:35 AM Referred By: Confirmed By: Alfred Tran
[2024-06-04] MEDS: Metoprolol Tartrate 25 MG Tablet PO (06:14)
[2024-06-04] MEDS: Aspirin E.C. 81 MG Tablet PO (06:18)
[2024-06-04 07:24] LABS: Hematocrit 46.3 % (40-54); Hemoglobin 14.7 g/dL (13.0-16.5); Mean Corp Hgb Conc 31.7 g/dL (32-36); Mean Corpuscular Hgb 27.4 pg (27.0-32.0); Mean Corpuscular Volume 86.2 fL (80-94); Platelet Count 270 K/mm3 (150-450); RBC Distribution Width SD 43.9 fl (35.1-43.9); Red Blood Count 5.37 M/mm3 (4.6-6.2); White Blood Count 9.6 K/mm3 (4.4-11.0)
[2024-06-04 07:43] LABS: Anion Gap 4 (5-15); BUN 12 mg/dL (7-18); BUN/Creat Ratio 14.2 RATIO (10-20); Calcium,Total 9.1 mg/dL (8.5-10.1); Chloride 107 mmol/L (98-107); Creatinine, Serum 0.85 mg/dL (0.70-1.30); EST Glomerular Filtration Rate 102 mL/min (>60); Est Glom Filt Rate - Afr Amer 124 mL/min (>60); Estimated Creatinine Clearance 149.12 ml/min; Glucose 104 mg/dL (74-106); Magnesium 2.4 mg/dL (1.6-2.6); Potassium 3.7 mmol/L (3.5-5.1); Sodium Level 136 mmol/L (136-145)
--- NOTE | 2024-06-04 08:06 | PN.CARD_ITS ---
Subjective Subjective Patient resting comfortably in the bed. He denies any recurrence of any anginal type symptoms. His blood pressure has remained elevated. The patient is scheduled for left heart catheterization this morning. Objective Data Vital Signs: Vital Signs Temp Pulse Resp BP Pulse Ox O2 Del Method 98.1 F 76 17 163/93 H 96 Room Air 06/04/24 03:00 06/04/24 06:14 06/04/24 03:00 06/04/24 06:14 06/04/24 03:00 06/04/24 03:05 Oxygen Delivery Method Room Air Weight: 320 lb 8.834 oz Body Mass Index (BMI) 48.7 Lab / Micro Data Attestation: I reviewed the patient's lab results. 06/04/24 06:09 06/04/24 06:09 Labs: Laboratory Results - last 24 hr 06/03/24 03:07: Hemoglobin A1c 6.1 H 06/04/24 06:09: WBC 9.6, RBC 5.37, Hgb 14.7, Hct 46.3, MCV 86.2, MCH 27.4, MCHC 31.7 L, RDW Std Deviation 43.9, RDW Coeff of Aleksandar 14.0, Plt Count 270, MPV 11.0, Sodium 136, Potassium 3.7, Chloride 107, Carbon Dioxide 25.0, Anion Gap 4 L, BUN 12, Creatinine 0.85, Estim Creat Clear Calc 149.12, Est GFR (MDRD) Af Amer 124, Est GFR (MDRD) Non-Af 102, BUN/Creatinine Ratio 14.2, Glucose 104, Calcium 9.1, Magnesium 2.4 Rhythm Strip Rhythm Strip: Sinus Rhythm Rate: 70 Ectopy: None Cardiology Labs/Tests 06/03/24 03:07: Hemoglobin A1c 6.1 H 06/04/24 06:09: WBC 9.6, RBC 5.37, Hgb 14.7, Hct 46.3, MCV 86.2, MCH 27.4, MCHC 31.7 L, Plt Count 270, MPV 11.0, Sodium 136, Potassium 3.7, Chloride 107, Carbon Dioxide 25.0, Anion Gap 4 L, BUN 12, Creatinine 0.85, Est GFR (MDRD) Af Amer 124, Est GFR (MDRD) Non-Af 102, BUN/Creatinine Ratio 14.2, Glucose 104, Calcium 9.1, Magnesium 2.4 Rhythm: EKG: ECHO: Stress Test: Cardiac Cath: PCI: CT Surgery: Holter monitor: EPS: PPM: CXR: Chest CT Scan: Radiography Diagnostic Testing: Radiology Impression Echocardiogram 06/02/24 22:53 Interpretation Summary The estimated ejection fraction is 45 %. There is mild to moderate global hypokinesis of the left ventricle. Mild (1+) aortic valve insufficiency. Ordering Physician: Waqas Ott Referring Physician: RONNIE PCP Performed By: Laura Gibbs RCS Physical Exam Const alert and oriented x3 HEENT normocephalic Neck no JVD Chest inspection of chest normal Resp normal respiratory effort Auscultation: rhonchi right lower (Changes with deep breathing.) Cardio regular rate, regular rhythm, S1 normal heart sound, S2 normal heart sound, no murmurs, no rub and no gallops GI GI Narrative: Obese Extremity no pedal edema Neuro Neuro Narrative: Alert and oriented x 3 Psych mental status grossly normal Assessment & Plan Assessment/Plan (1) Abnormal stress test: PLAN: Patient stress test was consistent with inferior hypokinesis and possible ischemia. The echocardiogram showed global LV systolic dysfunction EF 45%. The patient will have left heart catheterization this morning. Further recommendations be forthcoming once the catheterization is completed. Patient's cath revealed: Very tortuous subclavian and proximal aorta making access of the coronary arteries very difficult requiring a long sheath. Left main trunk appears to be normal. The LAD is free of any significant disease. The circumflex has a 70% eccentric lesion in the distal third of the main trunk. This was prior to the origin of the terminal posterolateral branch. Right coronary artery there is 2 lesions 1 in the proximal about 30% another in the mid 30% there is some mild diffuse irregularities throughout the proximal mid segments of the right coronary artery. Posterior descending artery is free of any significant disease. Recommendations: Will treat this medically with aggressive secondary risk factor modification. If the patient has recurrent exertional anginal symptoms would consider attempt at revascularization of the circumflex via the groin approach. The patient needs his blood pressure aggressively treated we had recently altered his medical regiment. From a cardiovascular standpoint the patient can be discharged later today and follow-up in the [place] [facility] office one of our nurse practitioners in 7 to 10 days. (2) SVT (supraventricular tachycardia): PLAN: Patient originally presented with supraventricular tachycardia with a heart rate in the 1 60-1 80 range. This was converted with adenosine in the emergency department. I do not find an EKG in his chart documenting the SVT. (3) Elevated troponin: PLAN: Patient's troponin peaked at 347. Given the SVT, his longstanding hypertension and his mild global LV systolic dysfunction this could be all hypertensive heart disease. However given his risk factor profile and his abnormal stress test left heart catheterization is indicated and planned for this morning. (4) Hypertension: QUALIFIERS: Hypertension type: primary hypertension Qualified Code(s): I10 - Essential (primary) hypertension PLAN: Blood pressure remains elevated. We will change his metoprolol to Coreg 12.5 mg twice daily and add losartan 50 mg each morning. Patient be follow-up in the office following discharge for further management of his hypertension. PLAN: Plan 1. Change metoprolol to Coreg 12.5 mg twice daily. 2. Add losartan 50 mg every morning. 3. Patient will need basic metabolic panel and follow-up in the [facility] office in 7 to 10 days for his hypertension and general cardiovascular follow-up. 4. 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 5. Patient will need to follow-up for aggressive titration of his antihypertensive therapy in the [place] [facility] office in 7 to 10 days. 6. From a cardiovascular standpoint the patient can be discharged later today. Charges/Coding Visit Charges Inpatient E&M: 48955 Subs Hosp L3
[2024-06-04] MEDS: Losartan Potassium 50 MG Tablet PO (09:52)
--- NOTE | 2024-06-04 10:10 | CL.D_ITS ---
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 RECOMMENDATIONS Aggressive medical therapy. If fails then will be brought back for PCI of the circumflex artery. DESCRIPTION OF PROCEDURE The patient arrived to the procedure lab. The risks and benefits of the procedure as well as a full description of our services here and current unavailability of surgical backup were fully explained to the patient and/or their significant other prior to the catheterization. The Timeout was completed, verifying the correct patient and procedure. The patient's procedural site was prepped and draped in the usual fashion. Local anesthetic was given subcutaneously to right radial region with Lidocaine 2%. Using a modified Seldinger technique, arterial access was obtained via the right radial artery, a 6Fr sheath was inserted. Right Coronary Artery selective angiography was then performed in multiple views using a 6 Fr. JR 4 catheter. Left Coronary Artery selective angiography was performed in multiple views using a 6 Fr. JL4 catheter.The radial arterial sheath was pulled and a TR Band was applied for hemostasis CORONARY ANGIOGRAPHY DOMINANCE: Right Dominant LEFT HEART ASSESSMENT Left Ventricular Ejection Fraction: by Echo 40 % Depressed Left Ventricular systolic function LEFT MAIN: Mild luminal irregularities LEFT ANTERIOR DESCENDING ARTERY: Medium size vessel with luminal irregularities and no high-grade stenosis more than 30 to 40%. CIRCUMFLEX ARTERY: Nondominant vessel with mid segment 70% stenosis after the first obtuse marginal branch. RIGHT CORONARY ARTERY: Dominant large vessel with proximal 30% stenosis with diffuse mid and distal vessel disease. AORTIC ROOT: Dilated COMPLICATIONS No Complications PROCEDURE MEDICATIONS Versed 1 mg IV Fentanyl 50 mcg IV Versed 1 mg IV Fentanyl 25 mcg IV Oxygen: 2 L/min via nasal cannula Heparin given IA 06/04/2024 08:34:26 Verapamil 2.5mg, Ntg 100mcgs, 3000 units of Heparin given IA 06/04/2024 08:34:26 SUMMARY OF HEMODYNAMIC DATA Time AIR REST ECG 08:18:54 AO 148/100 (122) SA 08:45:26 Signed By Jass Kumar MD On 06/04/2024 10:09:32 Jass Kumar MD
[2024-06-04] MEDS: Carvedilol 12.5 MG Tablet PO ×2 (12:47→16:03)
--- NOTE | 2024-06-04 13:31 | DCINST_ITS ---
Discharge Instructions Diet Discharge Diet: - (DASH diet) DC O2, CPAP, BIPAP needs Home O2 Discharge instructions: No Dressing / Incision Discharge Activity: - (See additional discharge instructions) Follow Up Care Test Results: Test results from this visit will be discussed in further detail at your follow- up appointment, if applicable. Discharge Plan Admission Admit Date/Time: 06/02/24 21:34 Primary Reason for Your Visit: Palpitations Attending Provider: Lupe Menendez Primary Care Provider: Care Physician,No Primary Consulting Providers: Waqas Ott; Alfred Tran Instructions Patient Instructions: DASH Plan Eat Heart Healthy Food, Eating Heart-Healthy Foods, Cardiac Cath Transradial Additional Instructions / Restrictions: DISCHARGE INSTRUCTIONS PLEASE READ *Please take this with you to your next doctors appointment* -Please follow-up with cardiology upon discharge in 7 to 10 days. Please call their office to schedule hospital follow-up appointment upon discharge. -Please call your primary care provider's office upon discharge to schedule a hospital follow up within 1 week. -Several new medications were prescribed for you as below. These have been called into your preferred pharmacy on file -Do only light and easy activities for 2 to 3 days after your stent placement, ask for help with chores and errands while you recover and have someone drive you to your appointments. -Unless your job involves lifting you may return to normal activities within 2 days -Please take your medications as prescribed, do not skip doses -Check your incisions every day for signs of infection which would include redness, swelling, leaking. It is normal to have a small bruise or bump where the catheter was placed but a bruise that is getting larger is not normal. Please tell your healthcare team about this. Please proceed to the emergency department if you have uncontrollable bleeding from the site. -It is important to eat a diet that is low in fat, salt, and cholesterol -You will be set up with cardiac rehab upon discharge, it is important that you follow-up -Okay to shower from the day after your heart catheterization but keep your incision site clean and dry. -If you do not have a primary care physician of list of local primary care physicians can be provided for you upon discharge. Please ask for this list prior to discharge -For any concerning signs or symptoms please call 911 or proceed to the nearest emergency department Discharge Orders/Prescriptions Prescriptions: New losartan 50 mg Tablet 50 mg PO DAILY 30 Days Qty: 30 0RF atorvastatin 80 mg Tablet 80 mg PO QHS 30 Days Qty: 30 0RF aspirin 81 mg Tablet,Delayed Release (Dr/Ec) 81 mg PO BREAKFAST 30 Days Qty: 30 0RF carvedilol 25 mg tablet 25 mg PO BID 30 Days Qty: 60 0RF Rx Instructions: must administer with a meal/food Referrals / Follow Up: Alfred Tran MD [Med Staff - Active Staff] - Within 1 Week (Please follow-up with the cardiology nurse practitioner in 7 to 10 days, please call on discharge to schedule your appointment) Care Physician,No Primary [Primary Care Provider] - ( -If you do not have a primary care physician of list of local primary care physicians can be provided for you upon discharge. Please ask for this list prior to discharge ) Disposition Disposition (needs filled in before D/C Order can be placed): Home, Self Care
--- NOTE | 2024-06-04 15:17 | DS.PCM_ITS ---
Providers Date of Admission: 06/02/24 Date of Discharge: 06/04/24 Primary Care Physician: Brigida Primary Care Phys Consultations 06/03/24 13:16 Consult: Cardiology Routine Consulting Provider: Alfred Tran Reason for Consult: Abnormal stress test EMERGENT Consult: No MD Notified: Yes Date Notified: 06/03/24 Time Notified: 13:51 Method of Notification: Text Reason For Visit: ELEVATED TROPONINS WITH SVT CONCERN FOR CHF Diagnosis Discharge Diagnosis (1) Abnormal stress test: Status: Acute Code(s): R94.39 - Abnormal result of other cardiovascular function study (2) SVT (supraventricular tachycardia): Status: Acute Code(s): I47.10 - Supraventricular tachycardia, unspecified (3) Elevated troponin: Status: Acute Code(s): R79.89 - Other specified abnormal findings of blood chemistry (4) Hypertension: Status: Chronic Code(s): I10 - Essential (primary) hypertension Qualifiers: Hypertension type: primary hypertension Qualified Code(s): I10 - Essential (primary) hypertension (5) CAD (coronary artery disease): Status: Acute Code(s): I25.10 - Atherosclerotic heart disease of [place] coronary artery without angina pectoris Plan # Coronary artery disease # New onset heart failure with preserved ejection fraction without exacerbation # Hypertension # SVT-resolved #Hypokalemia-resolved #Morbid obesity #Tobacco use Medications at Discharge Home Medications aspirin 81 mg tablet,delayed release 81 mg PO BREAKFAST 30 days #30 tabs 06/04/24 atorvastatin 80 mg tablet 80 mg PO QHS 30 days #30 tabs 06/04/24 carvedilol 25 mg tablet 25 mg PO BID 30 days #60 tabs 06/04/24 losartan 50 mg tablet 50 mg PO DAILY 30 days #30 tabs 06/04/24 Hospital Course Procedures - (Stress test, heart cath) Summary of Care Provided Minutes Spent on Discharge: 31 Hospital Course: # Coronary artery disease # New onset heart failure with preserved ejection fraction without exacerbation # Hypertension # SVT-resolved #Hypokalemia-resolved #Morbid obesity #Tobacco use 40-year-old male with problem list as above who presented [facility] ED 06/02/2024 with palpitations and cough. Palpitations started at 4:30 PM on day of presentation and the cough had been going on for over a year but had not been following with a physician due to cost. On arrival in the ED heart rate was 180s and patient was in SVT which broke with 6 mg of IV adenosine. Patient's troponins were 24 and then trended up to 347 and hospitalist contacted for admission. Patient had stress test and echo ordered. Stress test demonstrated mild inferior ischemia and echocardiogram showed EF of 45% with mild to moderate global hypokinesis of left ventricle and diastolic dysfunction. Given this cardiology consulted and patient underwent heart catheterization which demonstrated moderately severe disease noted nondominant circumflex artery with mild disease in LAD and RCA and aggressive medical therapy recommended. If aggressive medical therapy fails may need to be brought back for PCI. Patient on aspirin and statin, also was noted to have persistently elevated blood pressure and had adjustments resulting in patient on 25 mg twice daily of Coreg and 50 of losartan. Patient stable on day of discharge with no complaints of shortness of breath or chest pain. Advised to establish care with PCP to discuss his chronic cough. Discharge instructions as follows: -Please follow-up with cardiology upon discharge in 7 to 10 days. Please call their office to schedule hospital follow-up appointment upon discharge. -Please call your primary care provider's office upon discharge to schedule a hospital follow up within 1 week. -Several new medications were prescribed for you as below. These have been called into your preferred pharmacy on file -Do only light and easy activities for 2 to 3 days after your stent placement, ask for help with chores and errands while you recover and have someone drive you to your appointments. -Unless your job involves lifting you may return to normal activities within 2 days -Please take your medications as prescribed, do not skip doses -Check your incisions every day for signs of infection which would include redness, swelling, leaking. It is normal to have a small bruise or bump where the catheter was placed but a bruise that is getting larger is not normal. Please tell your healthcare team about this. Please proceed to the emergency department if you have uncontrollable bleeding from the site. -It is important to eat a diet that is low in fat, salt, and cholesterol -You will be set up with cardiac rehab upon discharge, it is important that you follow-up -Okay to shower from the day after your heart catheterization but keep your incision site clean and dry. -If you do not have a primary care physician of list of local primary care physicians can be provided for you upon discharge. Please ask for this list prior to discharge -For any concerning signs or symptoms please call 911 or proceed to the nearest emergency department Physical Exam Narrative General: Tired but wakes up and answers questions appropriately HEENT: Atraumatic, normocephalic Eyes: Anicteric, normal conjunctiva, extraocular movements grossly intact Neck: Supple Respiratory: Somewhat diminished bilaterally possibly secondary to body habitus, normal respiratory effort Cardiovascular: Regular rate and rhythm GI: Abdomen protuberant Extremities: No edema Musculoskeletal: Moving all extremities Neuro: No overt focal neurological deficits Skin: No rashes appreciated Psych: Cooperative Weight / BMI Weight Weight: 145.4 kg Body Mass Index (BMI) 48.7 ABG / Lab / Microbiology Data 06/04/24 06:09 06/04/24 06:09 Laboratory: Laboratory Results - last 24 hr 06/04/24 06:09: WBC 9.6, RBC 5.37, Hgb 14.7, Hct 46.3, MCV 86.2, MCH 27.4, MCHC 31.7 L, RDW Std Deviation 43.9, RDW Coeff of Aleksandar 14.0, Plt Count 270, MPV 11.0, Sodium 136, Potassium 3.7, Chloride 107, Carbon Dioxide 25.0, Anion Gap 4 L, BUN 12, Creatinine 0.85, Estim Creat Clear Calc 149.12, Est GFR (MDRD) Af Amer 124, Est GFR (MDRD) Non-Af 102, BUN/Creatinine Ratio 14.2, Glucose 104, Calcium 9.1, Magnesium 2.4 Microbiology: Microbiology 06/02/24 18:07 Mucosa - Nose SARS-CoV-2, Influenza & RSV (PCR) - Final D/C Instructions Discharge Diet: - (DASH diet) DC O2, CPAP, BIPAP Needs Home O2 Discharge instructions: No Meaningful Use Info Meaningful Use Meaningful Use Diagnoses (Choose all that apply): AMI AMI/Post PCI/Angioplasty Aspirin given w/in 24hrs of arrival?: Yes ASA at discharge?: Yes Statins at discharge?: Yes Jakub/ARB at discharge?: Yes Beta Courtney at discharge?: Yes Done w/ Acute OK measure.: Yes Documented LVEF (%): 45 Ischemic Stroke Statin Dosing Therapy Reference: STATIN DOSE THERAPY REFERENCE: * Patients > 75 years receive moderate or high dose statin therapy. * Patients 75 years or YOUNGER should receive HIGH intensity statin dose unless contraindicated. You will be required to document reason for non-treatment if statin daily dose does not meet guidelines. HIGH DOSE STATIN THERAPY DAILY Atorvastatin > than or = to 40 mg Rosuvastatin > than or = to 20 mg Amlodipine + Atorvastatin > than or = to 2.5/40 mg Ezetimibe + Simvastatin 10/80 mg Simvastatin 80mg Discharge Plan Admission Admit Date/Time: 06/02/24 21:34 Primary Reason for Your Visit: Palpitations Attending Provider: Lupe Menendez Primary Care Provider: Care Physician,No Primary Consulting Providers: Waqas Ott; Alfred Tran Instructions Patient Instructions: DASH Plan Eat Heart Healthy Food, Eating Heart-Healthy Foods, Cardiac Cath Transradial Additional Instructions / Restrictions: DISCHARGE INSTRUCTIONS PLEASE READ *Please take this with you to your next doctors appointment* -Please follow-up with cardiology upon discharge in 7 to 10 days. Please call their office to schedule hospital follow-up appointment upon discharge. -Please call your primary care provider's office upon discharge to schedule a hospital follow up within 1 week. -Several new medications were prescribed for you as below. These have been called into your preferred pharmacy on file -Do only light and easy activities for 2 to 3 days after your stent placement, ask for help with chores and errands while you recover and have someone drive you to your appointments. -Unless your job involves lifting you may return to normal activities within 2 days -Please take your medications as prescribed, do not skip doses -Check your incisions every day for signs of infection which would include redness, swelling, leaking. It is normal to have a small bruise or bump where the catheter was placed but a bruise that is getting larger is not normal. Please tell your healthcare team about this. Please proceed to the emergency department if you have uncontrollable bleeding from the site. -It is important to eat a diet that is low in fat, salt, and cholesterol -You will be set up with cardiac rehab upon discharge, it is important that you follow-up -Okay to shower from the day after your heart catheterization but keep your incision site clean and dry. -If you do not have a primary care physician of list of local primary care physicians can be provided for you upon discharge. Please ask for this list prior to discharge -For any concerning signs or symptoms please call 911 or proceed to the nearest emergency department Discharge Orders/Prescriptions Prescriptions: New losartan 50 mg Tablet 50 mg PO DAILY 30 Days Qty: 30 0RF atorvastatin 80 mg Tablet 80 mg PO QHS 30 Days Qty: 30 0RF aspirin 81 mg Tablet,Delayed Release (Dr/Ec) 81 mg PO BREAKFAST 30 Days Qty: 30 0RF carvedilol 25 mg tablet 25 mg PO BID 30 Days Qty: 60 0RF Rx Instructions: must administer with a meal/food Referrals / Follow Up: Alfred Tran MD [Med Staff - Active Staff] - Within 1 Week (Please follow-up with the cardiology nurse practitioner in 7 to 10 days, please call on discharge to schedule your appointment) Care Physician,No Primary [Primary Care Provider] - ( -If you do not have a primary care physician of list of local primary care physicians can be provided for you upon discharge. Please ask for this list prior to discharge ) Disposition Disposition (needs filled in before D/C Order can be placed): Home, Self Care Charges/Coding Visit Charges Inpatient E&M: 80145 Disch Hosp >30min
--- NOTE | 2024-06-04 15:34 | CASEMGMT ---
Patient has order for discharge. RN CM in to discuss needs at discharge. Patient provided with PCP list and [facility] information. Patient denied further needs or concerns at discharge.
== END 2024-06-04 16:35 | disposition home or self-care (01) | DRG 287 ==
LOC: ED 18:43 → PCU 21:56
PROVIDERS: Admitting Provider Hospitalist; Emergency Provider Emergency Medicine; Visit Provider Internal Medicine
DX: I47.10 Supraventricular tachycardia, unspecified (principal); I50.32 Chronic diastolic (congestive) heart failure; Z68.42 Body mass index [BMI] 45.0-49.9, adult; E66.01 Morbid (severe) obesity due to excess calories; I11.0 Hypertensive heart disease with heart failure; E87.6 Hypokalemia; I25.10 Atherosclerotic heart disease of native coronary artery without angina pectoris; F17.210 Nicotine dependence, cigarettes, uncomplicated; E66.813 Obesity, class 3; R79.89 Other specified abnormal findings of blood chemistry; R94.39 Abnormal result of other cardiovascular function study; R05.3 Chronic cough
CPT/HCPCS: 36415; 71046; 78452; 80048; 80061; 83036; 83735; 83880; 84443; 84484; 85025; 85027; 85610; 87631; 93005; 93017; 93306; 93454; 99152; 99153; 99285; A9500; Q9957; Q9967; A4216; C1769; C1894; C8929; J0153; J1940; J2785

== ENCOUNTER 2024-07-30 16:27 | Emergency (ER) | payer SELFPAY ==
[2024-07-30] VITALS (7 sets, daily range): BP systolic 159–188; BP diastolic 87–104; PULSE 85–180; RESP 18–22; TEMP 36.9–37.2; O2SAT 94–97; BMI 49.1
--- NOTE | 2024-07-30 16:30 | EDS_ITS ---
HPI History of Present Illness Chief Complaint: Chest Pain [facility] Medical History (Updated 07/30/24 @ 20:[address] Austin Estrella DO) SVT (supraventricular tachycardia) Elevated troponin Atherosclerosis of coronary artery of [place] heart without angina pectoris Home Medications ?Medication ?Instructions ?Recorded ?Last Taken ?Type NK 07/30/24 Unknown History Allergy/AdvReac Type Severity Reaction Status Date / Time No Known Allergies Allergy Verified 06/02/24 17:17 Surgical History History of left heart catheterization (~06/04/24) Social History Smoking Status: Current every day smoker tobacco type: cigarettes EXAM Physical Exam Const Vital Signs: 07/30/24 16:27 07/30/24 16:43 07/30/24 17:27 Temperature 98.9 F Temperature Source Oral Pulse Rate 180 H 104 H Respiratory Rate 18 19 H Blood Pressure 188/104 H 161/99 H Blood Pressure Mean 132 119 Pulse Ox 94 97 95 Oxygen Delivery Method Room Air Nasal Cannula Room Air Oxygen Flow Rate (L/min) 2 07/30/24 18:00 07/30/24 19:00 07/30/24 20:00 Temperature Temperature Source Pulse Rate 105 H 92 91 Respiratory Rate 22 H 18 18 Blood Pressure 159/101 H 179/92 H 179/96 H Blood Pressure Mean 120 121 123 Pulse Ox 97 97 96 Oxygen Delivery Method Room Air Room Air Room Air Oxygen Flow Rate (L/min) MDM MDM MDM Narrative Medical decision making narrative: HISTORY OF PRESENT ILLNESS: 49-year-old male history of SVT, elevated troponin, CAD presents with chest pain started 2 minutes ago. Notes 7 out of 10. He notes the pain radiates down his left arm. Notes similar symptoms approximately 2 months ago for which she was admitted for damage to his heart and elevated heart rate. Notes at this time he had medicine which reverses elevated heart rate. The patient denies recent surgery in the last 4 weeks or immobilization in the last 3 days, denies previous diagnosis of DVT or PE, hemoptysis, unilateral leg swelling or malignancy with treatment the last 6 months or palliative. No estrogen use noted. Notes chronic cough but denies any recent illness. REVIEW OF SYSTEMS: Pertinent positives: Chest pain, shortness of breath, palpitations Pertinent negatives: Bleeding diathesis, new cough fever chills, leg swelling PHYSICAL EXAM: Nursing triage notes reviewed, Vital signs reviewed Constitutional: please see mdm HENT: MMM Eyes: Pupils equal round and reactive to light, Extraocular muscles intact Neck: No stridor, no JVD, full neck ROM Lungs: Clear to auscultation, No wheezing or rales. No increased work of breathing, no conversational dyspnea, no accessory muscle use, no nasal flaring. No respiratory distress noted Heart: Regular rate and rhythm, No murmurs, No rubs and No gallops, 2+ distal pulses (radial, femoral, posterior tibial) in all extremities Abdomen: Soft, there is no tenderness, rigidity, rebound or guarding, no obvious peritoneal signs, no palpable pulsatile abdominal masses, no auscultated abdominal bruit : No CVAT Extremities: No edema Neuro: No new focal neurological deficits, cranial nerves II through XII intact, 5/5 strength in all present extremities. Intact sensation to light touch in all present extremities, 2+ reflexes bilateral patella tendons. Skin: No rash or lesions noted MEDICAL DECISION MAKING: Chief Complaint: Chest pain External records reviewed: Reviewed prior cardiovascular testing: Reviewed cardiac catheterization from June 04, 2024. Saw Dr. Kumar. Noted mildly severe disease noted nondominant circumflex artery and mild disease in the LAD. Recommended aggressive medical therapy. If fails will be brought back for PCI of the circumflex artery. Factors affecting care: CAD, NSTEMI, SVT Social determinants of health: Denies alcohol use, denies illicit drug use History obtained from others: none Consults: None [facility] Narrative: Patient was initially tachycardic rate of 180, hypertensive with a blood pressure 188/104, saturating 94% on room air, afebrile. Pneumothorax I considered the following differential diagnosis: Arrhythmia, anemia, electrolyte disturbance, PE, ACS, pneumonia ALL IMAGES (IF OBTAINED) HAVE BEEN PERSONALLY REVIEWED AND INTERPRETED BY MYSELF. Initial EKG showed evidence of SVT with a rate of 184, QTc 455, noted rate related ST depressions laterally. Given elevated heart rate IV O2 monitor was placed. Pacer pads were placed. Given SVT I opted to initially treat the patient with 6 mg of IV adenosine. This did not result in conversion to normal sinus rhythm. I then chose to treat with an additional 12 mg of adenosine with return to sinus rhythm. EKG after adenosine showed normal sinus rhythm, normal axis, grossly normal intervals, no obvious STEMI CBC with leukocytosis likely reactive from tachycardia, no anemia or thrombocytopenia BMP with outside electrolyte balance, no acute kidney injury High-sensitivity troponin is negative, no evidence of myocardial ischemia x 2 (16, 20 delta 5) I have personally reviewed the patient's chest x-ray. Chest x-ray is unremarkable for pulmonary edema, pneumothorax, pneumonia or focal cardiopul monary abnormality. Thyroid studies were normal. Upon reassessment patient was chest pain-free , Vital signs improved to a heart rate of 91. Oxygen was removed. Saturating well on room air. Given patient was asymptomatic, and no chest pain negative troponins is no indication for admission at this time The patient and/or family, caregivers express understanding. The patient and/or family, caregivers agrees with the plan. Shared decision making: I will have a discussion with the patient and or visitors regarding risk/benefits of further testing or admission. They will be made aware of of the risk/benefits inherent in this decision they will be given the opportunity to voice understanding. Total critical care time today provided was at least 35 minutes. This excludes separately billable procedures. Critical care time (if documented) is secondary to the patient having high probability of clinically significant/life threatening deterioration in the patient's condition which required my urgent intervention. Impression: 1. SVT 2. Chest Pain Dispo: Discharge home This note was generated with Seeonic dictation software. It may contain incorrect words, spelling, and punctuation that were not noted in review of the chart prior to signing. Lab Data Labs: Laboratory Results - last 24 hr 07/30/24 07/30/24 16:34 19:22 WBC 11.4 H RBC 5.83 Hgb 16.3 Hct 49.8 MCV 85.4 MCH 28.0 MCHC 32.7 RDW Std Deviation 44.7 H RDW Coeff of Aleksandar 14.5 Plt Count 328 MPV 10.3 Immature Gran % (Auto) 0.400 Neut % (Auto) 64.7 Lymph % (Auto) 25.1 Tift % (Auto) 8.9 Eos % (Auto) 0.5 Baso % (Auto) 0.4 Absolute Neuts (auto) 7.4 Absolute Lymphs (auto) 2.86 Nucleated RBC % 0 Sodium 139 Potassium 3.9 Chloride 103 Carbon Dioxide 20.9 L Anion Gap 15 BUN 14 Creatinine 1.11 Estim Creat Clear Calc 113.59 Est GFR (MDRD) Non-Af 81 BUN/Creatinine Ratio 12.3 Glucose 133 H Calcium 9.5 Troponin T High Sens 16 Troponin T Hi Sens 2 Hr 21 TSH 1.580 Free T4 1.30 Free T3 pg/dL 3.7 Radiography Diagnostic Testing: Clinical Impression(s) from Imaging Studies Chest X-Ray 07/30/24 16:48 IMPRESSION: 1. Cardiomegaly without visible acute cardiopulmonary findings. 2. Recommend outpatient CT chest for above mediastinal findings, unless more rem ote outside imaging is available to establish stability or further delineate. 3. Additional description as above. Reading Location: [id number] Discharge Plan Triage Chief Complaint: Chest Pain ED Provider: Austin Estrella Dx/Rx/DC Orders Clinical Impression: SVT (supraventricular tachycardia) Instructions: Supraventricular Tachycardia Prescriptions: No Action NK Primary Care Provider: Care Physician,No Primary Referrals: Jass Kumar MD [Med Staff - Active Staff] - Activity Restrictions/Additional Instructions: Thank you for trusting us with your care today! Your labs images were reassuring. Specifically no sign of damage to your heart. The reason you experience chest pain today as a cause of elevated heart rate called SVT. Please take Tylenol (2 pills, 650 mg), ibuprofen (2 pills, 400 mg) every 6 hours as needed for pain and fever control. Please follow-up with cardiology. Please return to the emergency department if your symptoms change or worsen. Please follow with Cardiology for further outpatient evaluation and management. Of note there was an incidental finding on your chest x-ray there requiring outpatient CT scan. Please talk to your civil manager about CT scan at your next visit. Please download my fitness pal. Please start a food diary tracking all of your food intake for the next 7 days. After 7 days please assess your macronutrients (protein, carbohydrates, fats). After 1 week can start making changes including decreasing her carbohydrates and increasing her protein intake to facilitate weight loss. Please take an additional 30-minute walk daily for exercise. Print Language: Korean Disposition Disposition: Home, Self Care
[2024-07-30] MEDS: Adenosine 6 MG/2 ML Syringe IV (16:34)
[2024-07-30] MEDS: 0.9% Normal Saline (1000mL) 1,000 ML 999 ML IV (16:35)
[2024-07-30] MEDS: Adenosine 6 MG/2 ML Syringe 12 MG IV (16:36)
[2024-07-30 16:48] LABS: Absolute Lymphocyte Count 2.86 X10^3/uL (0.83-4.51); Absolute Neutrophil Count 7.4 X10^3/uL (2.0-7.7); Basophil# 0.04 X10^3/uL; Basophil% 0.4 % (0-1); Eosinophil# 0.06 X10^3/uL; Eosinophils% 0.5 % (0-5); Hematocrit 49.8 % (40-54); Hemoglobin 16.3 g/dL (13.0-16.5); Lymphocyte # 2.86 X10^3/ul (0.83-4.51); Lymphocyte % 25.1 % (19-41); Mean Corp Hgb Conc 32.7 g/dL (32-36); Mean Corpuscular Volume 85.4 fL (80-94); Mean Platelet Vol. 10.3 fl (6.2-12.0); Monocyte# 1.01 X10^3/uL; Monocyte% 8.9 % (0-10); NRBC Flagged by Analyzer 0 % (0-5); Neutrophil # 7.37 X10^3/uL (2.7-7.7); Neutrophil % 64.7 % (47-70); Platelet Count 328 K/mm3 (150-450); RBC Distribution Width CV 14.5 % (11.6-14.6); RBC Distribution Width SD 44.7 fl (35.1-43.9); Red Blood Count 5.83 M/mm3 (4.6-6.2); White Blood Count 11.4 K/mm3 (4.4-11.0)
--- NOTE | 2024-07-30 16:48 | RAD_ITS ---
PROCEDURE: CHEST 1 VIEW (PORTABLE) REASON FOR EXAM: Chest pain TECHNIQUE: Single portable AP upright view of the chest was obtained. COMPARISON: 06/02/2024 FINDINGS: Heart: Similar cardiomegaly. Mediastinum: Similar contours including widening of the right paratracheal stripe, which could be projectional and/or related to vascular prominence, lipomatosis, lymphadenopathy, or other mediastinal process. Lungs/pleura: No convincing focal confluent consolidation. No sizeable pleural effusion or visible pneumothorax. Bones: Unremarkable. Lines and support devices: None. RAD/Chest 1 View (Portable) IMPRESSION: 1. Cardiomegaly without visible acute cardiopulmonary findings. 2. Recommend outpatient CT chest for above mediastinal findings, unless more re mote outside imaging is available to establish stability or further delineate. 3. Additional description as above. Reading Location: [id number]
[2024-07-30 17:10] LABS: Anion Gap 15 (5-15); BUN 14 mg/dL (4-19); BUN/Creat Ratio 12.3 RATIO (10-20); Calcium,Total 9.5 mg/dL (7.6-11.0); Carbon Dioxide 20.9 mmol/L (21.0-32.0); Chloride 103 mmol/L (98-108); Creatinine, Serum 1.11 mg/dL (0.70-1.20); EST Glomerular Filtration Rate 81 (>60); Estimated Creatinine Clearance 113.59 ml/min (50-250); Glucose 133 mg/dL (70-99); Potassium 3.9 mmol/L (3.3-5.1); Sodium Level 139 mmol/L (133-145); Troponin T High Sensitivity 16 ng/L (<=22)
[2024-07-30 17:44] LABS: Free T3 3.7 pg/mL (2.18-3.98)
[2024-07-30] MEDS: 0.9% Normal Saline (500mL Bag) 500 ML 999 ML IV (18:32)
[2024-07-30 19:51] LABS: Troponin T High Sens 2 HR 21 ng/L (<=22)
== END 2024-07-30 20:57 | disposition home or self-care (01) ==
PROVIDERS: Emergency Provider Emergency Medicine; Visit Provider Emergency Medicine
DX: R07.9 Chest pain, unspecified (principal); I47.10 Supraventricular tachycardia, unspecified; I25.10 Atherosclerotic heart disease of native coronary artery without angina pectoris; F17.210 Nicotine dependence, cigarettes, uncomplicated
CPT/HCPCS: 71045; 80048; 84439; 84443; 84481; 84484; 85025; 93005; 96361; 96374; 99284; A4216; J0153

== ENCOUNTER 2024-08-26 17:32 | Emergency (ER) | payer SELFPAY ==
[2024-08-26] MEDS: 0.9% Normal Saline (1000mL) 1,000 ML 150 ML IV (17:32)
[2024-08-26 17:33] VITALS: BP 133/80; PULSE 185; RESP 29; TEMP 36.8; O2SAT 97; BMI 48.6
[2024-08-26] MEDS: Adenosine 6 MG/2 ML Syringe IV (17:40)
--- NOTE | 2024-08-26 17:41 | EKG12_ITS ---
Test Reason : post cardio Blood Pressure : */* mmHG Vent. Rate : 106 BPM Atrial Rate : 106 BPM P-R Int : 146 ms QRS Dur : 96 ms QT Int : 362 ms P-R-T Axes : 46 -28 55 degrees QTcB Int : 480 ms Sinus tachycardia Voltage criteria for left ventricular hypertrophy ( R in aVL , Sokolow-Nuno , Canon product ) Nonspecific ST and T wave abnormality Abnormal ECG Confirmed by SHIV DINH, WHIT ([id number]), staff editor SVETLANA SILVERMAN ([id number]) on 08/27/2024 11:23:08 AM Referred By: Confirmed By: WHIT CHANEY MD
[2024-08-26] MEDS: Adenosine 6 MG/2 ML Syringe 12 MG IV (17:44)
--- NOTE | 2024-08-26 17:44 | EKG12_ITS ---
Test Reason : high hr Blood Pressure : */* mmHG Vent. Rate : 179 BPM Atrial Rate : * BPM P-R Int : * ms QRS Dur : 104 ms QT Int : 288 ms P-R-T Axes : * -53 75 degrees QTcB Int : 497 ms Critical Test Result: High HR Supraventricular tachycardia Left axis deviation Left ventricular hypertrophy ( Blanchard product , Romhilt-Shaver ) Marked ST abnormality, possible inferolateral subendocardial injury Abnormal ECG Confirmed by SHIV DINH, WHIT ([id number]), editor in chief newspaper SVETLANA SILVERMAN ([id number]) on 08/27/2024 9:44:00 AM Referred By: Confirmed By: WHIT CHANEY MD
--- NOTE | 2024-08-26 17:45 | EX.ED.DYSGE1 ---
HPI History of Present Illness Chief Complaint: Chest Pain Detail of Chief Complaint: Racing heart Informant: patient Narrative Narrative: Patient presents to the emergency department complaint of heart racing since 4 PM. Patient states that he was working out [employer] across the street when he started feeling his heart was racing. He had another episode 1 month ago and another episode before that in May. Patient describes some mild chest tightness or discomfort. A little bit lightheaded. No nausea or vomiting. He has not seen a stamper blocker and takes no blood pressure medication or medication for heart rate control. He takes a baby aspirin. Patient has had SVT but has not seen a civil litigation attorney. He states in the past it is required 12 mg of adenosine to convert him. [facility] Medical History (Updated 08/26/24 @ 19:[address] Kevin Sadler DO) SVT (supraventricular tachycardia) Elevated troponin Atherosclerosis of coronary artery of [place] heart without angina pectoris Home Medications ?Medication ?Instructions ?Recorded ?Last Taken ?Type NK 07/30/24 Unknown History metoprolol succinate 50 mg capsule 50 mg PO DAILY #30 ea 08/26/24 Unknown Rx sprinkle, ext. release 24 hr (Kapspargo Sprinkle) Allergy/AdvReac Type Severity Reaction Status Date / Time No Known Allergies Allergy Verified 08/26/24 17:35 Surgical History History of left heart catheterization (~06/04/24) Social History Smoking Status: Current every day smoker tobacco type: cigarettes ROS ROS ED Review of Systems ROS Unobtainable: other Constitutional Constitutional ED: Reports lethargy; Denies chills, fever(s), sweats or weight loss Eyes Eyes: Denies blurry vision, change in vision or diplopia ENT ENT ED: Denies rhinorrhea or sore throat Cardiovascular Cardiovascular: Reports chest pain and racing heartbeat; Denies orthopnea Respiratory/Chest Respiratory/Chest: Denies cough, dyspnea, dyspnea on exertion, orthopnea or sputum Gastrointestinal Gastrointestinal: Denies abdominal pain, diarrhea, nausea or vomiting Genitourinary Genitourinary ED: Denies dysuria, hematuria or urinary frequency Musculoskeletal Musculoskeletal: Denies arthralgias, back pain, myalgias or neck pain Integumentary Denies abscess, Abrasions or rash Neurologic Neurologic: Denies headache(s) or weakness Psychiatric Psychiatric: Denies anxiety, depression or suicidal thoughts Endocrine Endocrinology: Denies polydipsia, polyphagia or polyuria Hematologic/Lymphatic Hematologic/Lymphatic: Denies easy bleeding, easy bruising or lymphadenopathy Allergic/Immunologic Allergic/Immunologic ED: Denies mouth swelling, tongue swelling or urticaria EXAM Physical Exam Const Vital Signs: 08/26/24 17:33 08/26/24 17:35 08/26/24 19:04 Temperature 98.2 F Temperature Source Oral Pulse Rate 185 H 96 Respiratory Rate 29 H 26 H Respiratory Effort Normal Non-Labored Blood Pressure 133/80 H 135/82 H Blood Pressure Mean 97 99 Pulse Ox 97 97 Oxygen Delivery Method Room Air Positive well nourished and well developed General Appearance ED: well developed and NAD HEENT Reports TM's clear and moist mucous membranes normocephalic and atraumatic; Negative for trauma or tenderness Tympanic Membrane ED: Yes TM's clear Eyes PERRL and EOMs intact bilaterally General Eye ED: Negative for pale conjunctiva or scleral icterus Neck no lymphadenopathy, supple and no JVD General: Negative for tenderness Chest Wall inspection of chest normal and palpation of chest normal Chest: Negative for tenderness Resp normal respiratory effort and clear to auscultation bilaterally Effort and Inspection: Negative for respiratory distress or pain with movement Auscultation: Negative for rhonchi, wheezes or diminished lung sounds Cardio regular rhythm, S1 normal heart sound, S2 normal heart sound and no murmurs; Negative for regular rate Rate: tachycardic Peripheral Pulses: pulses 2+ throughout GI normal to inspection, nondistended, normoactive bowel sounds, soft to palpation, non-tender, non-distended and no masses Back/Spine no CVA tenderness and no thoracic nor lumbar tenderness Extremity normal to inspection General Extremety ED: Negative for edema General Extremity: Negative for edema Neuro oriented x3, CN's II-XII intact bilaterally, no sensory deficits noted and gait normal Sensorium / Orientation: awake, alert, oriented to person, oriented to place and oriented to time Motor Exam: strength 5/5 throughout and strength abnormal Psych mental status grossly normal Skin no rashes or lesions noted and no wounds MDM MDM MDM Narrative Medical decision making narrative: Patient presents tachycardic and slightly diaphoretic. Blood pressure normal. Patient noted to be in SVT. He had an IV line established and placed on photography spotter. He received 6 mg of adenosine initially with no improvement in his rhythm. He then received 12 mg of adenosine and he did convert to a normal sinus rhythm. Will obtain basic labs. Initial EKG did show SVT with ventricular [address] changes. Repeat EKG after conversion shows sinus tachycardia at 106 bpm with LVH and nonspecific ST changes. CBC with differential count 14.3 with hemoglobin 16 and platelet count of 351. Chemistries unremarkable. Troponin minimally elevated at 25 all aspects likely from elevated heart rate. I did review patient's last visits and he had a visit in May and had a heart cath at that time that showed left main mild luminal irregularities. Left anterior descending had medium size vessel with luminal irregularities and no high-grade stenosis. Patient had a circumflex artery that was nondominant with a mid segment 70% stenosed. Patient right coronary artery was dominant large vessel with proximal 30% stenosis. I discussed case with stamper blocker on-call who also performed patient's heart cath in May Dr. Kumar. I was asked to start patient on metoprolol 50 mg once a day. He is to call the office for follow-up and possible evaluation by civil litigation attorney. Patient understands and will follow-up. Lab Data Attestation: I reviewed the patient's lab results. Labs: Laboratory Results - last 24 hr 08/26/24 17:47 WBC 14.3 H RBC 5.92 Hgb 16.5 Hct 50.2 MCV 84.8 MCH 27.9 MCHC 32.9 RDW Std Deviation 45.0 H RDW Coeff of Aleksandar 14.7 H Plt Count 351 MPV 10.6 Immature Gran % (Auto) 0.400 Neut % (Auto) 66.7 Lymph % (Auto) 24.7 [place] % (Auto) 7.3 Eos % (Auto) 0.5 Baso % (Auto) 0.4 Absolute Neuts (auto) 9.5 H Absolute Lymphs (auto) 3.52 Nucleated RBC % 0 Sodium 140 Potassium 4.4 Chloride 105 Carbon Dioxide 18.9 L Anion Gap 16 H BUN 13 Creatinine 1.21 H Estim Creat Clear Calc 103.53 Est GFR (MDRD) Non-Af 73 BUN/Creatinine Ratio 10.9 Glucose 179 H Calcium 10.0 Troponin T High Sens 25 H D EKG Initial EKG: Attestation: I personally reviewed and interpreted this EKG as follows: Comments: Supraventricular tachycardia with ventricular rate of [address] After cardioversion with adenosine repeat EKG shows sinus rhythm with ventricular rate of [address] changes. Discharge Plan Triage Chief Complaint: Chest Pain ED Provider: Kevin Sadler Dx/Rx/DC Orders Clinical Impression: SVT (supraventricular tachycardia) Instructions: Supraventricular Tachycardia Prescriptions: New Kapspargo Sprinkle 50 mg capsule,sprinkle,ER 24hr 50 mg PO DAILY Qty: 30 0RF No Action NK Primary Care Provider: Care Physician,No Primary Referrals: Jass Kumar MD [Med Staff - Active Staff] - 3-5 Days Care Physician,No Primary [Primary Care Provider] - Print Language: Ukrainian Disposition Disposition: Home, Self Care
[2024-08-26 17:59] LABS: Absolute Lymphocyte Count 3.52 X10^3/uL (0.83-4.51); Absolute Neutrophil Count 9.5 X10^3/uL (2.0-7.7); Basophil# 0.05 X10^3/uL; Basophil% 0.4 % (0-1); Eosinophil# 0.07 X10^3/uL; Eosinophils% 0.5 % (0-5); Hematocrit 50.2 % (40-54); Hemoglobin 16.5 g/dL (13.0-16.5); Lymphocyte # 3.52 X10^3/ul (0.83-4.51); Lymphocyte % 24.7 % (19-41); Mean Corp Hgb Conc 32.9 g/dL (32-36); Mean Corpuscular Hgb 27.9 pg (27.0-32.0); Mean Corpuscular Volume 84.8 fL (80-94); Mean Platelet Vol. 10.6 fl (6.2-12.0); Monocyte# 1.04 X10^3/uL; Monocyte% 7.3 % (0-10); NRBC Flagged by Analyzer 0 % (0-5); Neutrophil # 9.54 X10^3/uL (2.7-7.7); Neutrophil % 66.7 % (47-70); Platelet Count 351 K/mm3 (150-450); RBC Distribution Width CV 14.7 % (11.6-14.6); Red Blood Count 5.92 M/mm3 (4.6-6.2); White Blood Count 14.3 K/mm3 (4.4-11.0)
[2024-08-26 18:14] LABS: Troponin T High Sensitivity 25 ng/L (<=22)
[2024-08-26 18:17] LABS: Anion Gap 16 (5-15); BUN 13 mg/dL (4-19); BUN/Creat Ratio 10.9 RATIO (10-20); Carbon Dioxide 18.9 mmol/L (21.0-32.0); Chloride 105 mmol/L (98-108); Creatinine, Serum 1.21 mg/dL (0.70-1.20); EST Glomerular Filtration Rate 73 (>60); Estimated Creatinine Clearance 103.53 ml/min (50-250); Glucose 179 mg/dL (70-99); Potassium 4.4 mmol/L (3.3-5.1); Sodium Level 140 mmol/L (133-145)
[2024-08-26 19:04] VITALS: BP 135/82; PULSE 96; RESP 26; O2SAT 97
[2024-08-26 19:10] VITALS: BP 135/82; PULSE 94; RESP 18; TEMP 36.8; O2SAT 98
== END 2024-08-26 19:23 | disposition home or self-care (01) ==
PROVIDERS: Emergency Provider Emergency Medicine; Visit Provider Emergency Medicine
DX: I47.10 Supraventricular tachycardia, unspecified (principal); R07.9 Chest pain, unspecified; I25.10 Atherosclerotic heart disease of native coronary artery without angina pectoris; Z79.82 Long term (current) use of aspirin; F17.210 Nicotine dependence, cigarettes, uncomplicated
CPT/HCPCS: 80048; 84484; 85025; 93005; 96361; 96374; 99284; A4216; J0153